=== PATIENT | female | born 1955 | race Caucasian/White ===

== ENCOUNTER → 2017-05-03 | Day surgery (SDC) | payer BC ==
[~2017-05-03] MED LIST: CALC600T4 PO; CRESTOR20 MG PO; FLUT12AE IH; IV RINGERS,LACTATED 1000ML 1,000 ML IV SCH; LIDOCAINE 1% PF 2 ML VIAL. ID PRN; LIDOCAINE 2% PF Vial for OR 5 ML VIAL. ONE; LISI-338 PO; MIDAZOLAM HCL/PF 2 MG/2 ML VIAL. IV PRN; PARO40TA61 PO; PROPOFOL 20 ML IV ONE; fentaNYL PF VIAL 100 MCG/2 ML VIAL IV PRN
[2017-05-03 09:01] VITALS: BP 160/76
--- NOTE | 2017-05-04 15:01 | PATHOLOGY ---
PATHOLOGY REPORT * * * * * * * * FINAL DIAGNOSIS: Colorectal biopsy, rectal polyp: - Mixed hyperplastic and adenomatous polyp. (JPM:pit; 05/04/2017) COMMENT: There is no high grade dysplasia or evidence of malignancy. (JPM:pit; 05/04/2017) REPORT ELECTRONICALLY SIGNED BY: Jhon Carrero M.D. DATE/TIME: 05/04/2017 15:01 * * * * * * * * GROSS PATHOLOGY: Received in formalin labeled "Maddison Hopkins, rectal polyp BX," is a segment of smith soft tissue measuring 0.2 cm in maximum dimension. The specimen is submitted entirely in cassette A1. (TSD; 05/03/2017) INITIAL CPT CODE(S): A; 22005 Professional services performed by [facility] [place] [address] Technical services performed by [facility] at [address] [place] [address]. SPECIMEN(S) RECEIVED: A.Rectal polyp biopsy CLINICAL HISTORY: Screening PATIENT: MADDISON HOPKINS /AGE: 1106/16/1955 (Age: 61) PATIENT #: [id number] ALT CASE #: SPECIMEN COLLECTION DATE: 05/03/2017 SPECIMEN RECEIVED DATE: 05/03/2017 [facility] - [address] [place] [address] - PHONE: [phone] * * * END OF REPORT * * *
== END | disposition home or self-care (01) ==
LOC: SURG 07:09
PROVIDERS: ATTEND Internal Medicine Gastroenterology
DX: K62.1 Rectal polyp (principal); K57.30 Diverticulosis of large intestine without perforation or abscess without bleeding; K64.0 First degree hemorrhoids; E78.00 Pure hypercholesterolemia, unspecified; I10 Essential (primary) hypertension; J45.909 Unspecified asthma, uncomplicated; F41.9 Anxiety disorder, unspecified; D64.9 Anemia, unspecified; Z88.6 Allergy status to analgesic agent; Z90.710 Acquired absence of both cervix and uterus; Z87.39 Personal history of other diseases of the musculoskeletal system and connective tissue; Z88.1 Allergy status to other antibiotic agents
CPT/HCPCS: 45380; 88305; J2704; J2001